=== PATIENT | male | born 1940 | race Caucasian/White ===

== ENCOUNTER 2020-07-15 14:35 | Emergency (ER) | payer OTHER, MEDICARE ==
[2020-07-15] MEDS ORDERED: Morphine 2 MG/ML SYRINGE IM ONE (14:53)
[2020-07-15] MEDS ORDERED: Morphine 2 MG/ML SYRINGE IVPUSH ONE ×2 (15:19→17:18)
[2020-07-15 15:20] LABS: CHLORIDE,CL 101 mmol/L (98-107); SODIUM,NA 136 mmol/L (136-145)
[2020-07-15 15:29] LABS: CORONAVIRUS COVID-19 AG NEGATIVE (NEGATIVE)
[2020-07-15] MEDS: Sodium Chloride 0.9% 10 ML Syringe FLUSH PRN ×2 (15:37→17:24)
[2020-07-15] MEDS ORDERED: Sodium Chloride 0.9% 10 ML Syringe FLUSH PRN (15:40)
--- NOTE | 2020-07-15 18:16 | EDM.PDOC ---
ED HPI GENERAL MEDICAL PROBLEM - General Chief Complaint: Lower Extremity Injury/Pain Stated Complaint: Right Hip Pain Time Seen by Provider: 07/15/20 14:40 Source of Information: Reports: Patient, Skilled Nursing Records - History of Present Illness INITIAL COMMENTS - FREE TEXT/NARRATIVE: Pt fell 07/02/20 at [place] home Complained of pain today Pt sent for outpt xray and noted to have right hip fracture Sent to ER Pt complains of pain in right hip 09/22 Onset: Gradual Duration: Week(s):, Getting Worse Location: Reports: Lower Extremity, Right Quality: Reports: Throbbing Severity: Moderate Context: Reports: Trauma Right Hip Pain Score (Numeric/FACES): 5 - Related Data Allergies Allergy/AdvReac Type Severity Reaction Status Date / Time No Known Allergies Allergy Verified 05/29/16 12:03 Home Meds: Home Meds Budesonide/Formoterol [Symbicort 160-4.5 Mcg Inhaler] 1 inh IH BID@0600,1600 02/24/15 [History] OLANZapine [ZyPREXA] 20 mg PO DAILY@1600 02/24/15 [History] Topiramate [Topamax] 75 mg PO BID@0800,1600 02/24/15 [History] Albuterol/Ipratropium [DuoNeb 3.0-0.5 MG/3 ML] 3 ml INH BID@0600,1600 05/29/16 [History] Acetaminophen [Tylenol Arthritis] 1 tab PO DAILY@0600 07/15/20 [History] Acetaminophen [Tylenol] 2 tab PO Q4HR PRN MDD 3000mg 07/15/20 [History] Albuterol Sulfate [Albuterol Sulfate HFA] 2 inh PO ASDIRECTED PRN MDD 5 times 07/15/20 [History] Ibuprofen 200 mg PO BID PRN 07/15/20 [History] Methyl Salicylate/Menthol [Thera-Gesic Analgesic] 1 applic TOP DAILY 07/15/20 [History] Phenylephrine HCl [Sudogest PE] 10 mg PO Q4HR PRN MDD 6 07/15/20 [History] cephALEXin [Cephalexin] 500 mg PO TID 07/15/20 [History] Past Medical History HEENT History: Reports: Allergic Rhinitis Cardiovascular History: Reports: Afib, High Cholesterol, Hypertension, PVD Respiratory History: Reports: COPD Gastrointestinal History: Reports: Colon Polyp Neurological History: Reports: TIA Psychiatric History: Reports: Depression, Schizophrenia Endocrine/Metabolic History: Reports: Diabetes, Type II - Past Surgical History Other GI Surgeries/Procedures: Previous feeding tube. Social & Family History - Tobacco Use Tobacco Use Status *Q: Current Every Day Tobacco User Years of Tobacco use: 64 Packs/Tins Daily: 1 Second Hand Smoke Exposure: No - Caffeine Use Caffeine Use: Reports: Soda - Recreational Drug Use Recreational Drug Use: No - Living Situation & Occupation Living situation: Reports: Extended Care Facility Occupation: Retired Review of Systems - Review of Systems Review Of Systems: See Below Constitutional: Reports: No Symptoms Eyes: Reports: No Symptoms Ears: Reports: No Symptoms Nose: Reports: No Symptoms Mouth/Throat: Reports: No Symptoms Respiratory: Reports: No Symptoms Cardiovascular: Reports: No Symptoms GI/Abdominal: Reports: No Symptoms Musculoskeletal: Reports: Joint Pain Skin: Reports: No Symptoms Neurological: Reports: No Symptoms ED EXAM, GENERAL - Physical Exam Exam: See Below General Appearance: Alert, Mild Distress Throat/Mouth: Normal Oropharynx Neck: Supple Respiratory/Chest: Lungs Clear Cardiovascular: Regular Rate, Rhythm GI/Abdominal: Soft, Non-Tender Back Exam: Normal Inspection Extremities: Limited Range of Motion, Other (Right hip tender) Course - Vital Signs Last Recorded V/S: Last Vital Signs Temp 97.5 F 07/15/20 14:37 Pulse 58 L 07/15/20 14:37 Resp 18 07/15/20 14:37 BP 157/59 H 07/15/20 14:37 Pulse Ox 96 07/15/20 14:37 - Orders/Labs/Meds Orders: Active Orders 24 hr Category Date Time Status Sodium Chloride 0.9% [Saline Flush] Med 07/15/20 15:39 Active 10 ml FLUSH ASDIRECTED PRN Sodium Chloride 0.9% [Saline Flush] Med 07/15/20 15:40 Active 10 ml FLUSH ASDIRECTED PRN Saline Lock Insert [OM.PC] Routine Oth 07/15/20 15:40 Ordered Medication Orders Sodium Chloride (Saline Flush) 10 ml FLUSH ASDIRECTED PRN PRN Reason: IV Use Last Admin: 07/15/20 17:24 Dose: 10 ml Documented by: Admin: 07/15/20 15:37 Dose: 10 ml Documented by: LYNDA Sodium Chloride (Saline Flush) 10 ml FLUSH ASDIRECTED PRN PRN Reason: Keep Vein Open Labs: Laboratory Tests 07/15/20 07/15/20 Range/Units 15:00 15:00 WBC 11.1 H (4.0-10.2) K/uL RBC 3.93 L (4.33-5.41) M/uL Hgb 12.4 L D (13.1-16.8) g/dL Hct 39.0 (39.0-49.0) % MCV 99.2 H (84.0-98.0) fL MCH 31.6 (28.2-33.3) pg MCHC 31.8 (31.7-36.0) g/dL RDW 12.9 (11.2-14.1) % Plt Count 316 (150-350) K/uL Neut % (Auto) 71.4 (45.0-80.0) % Lymph % (Auto) 19.6 (10.0-50.0) % Borden % (Auto) 8.3 (2.0-14.0) % Eos % (Auto) 0.6 (0.0-5.0) % Baso % (Auto) 0.1 (0.0-2.0) % Neut # (Auto) 7.95 H (1.40-7.00) K/uL Lymph # (Auto) 2.18 (0.50-3.50) K/uL Borden # (Auto) 0.93 (0.00-1.00) K/uL Eos # (Auto) 0.07 (0.00-0.50) K/uL Baso # (Auto) 0.01 (0.00-0.20) K/uL Sodium 136 (136-145) mmol/L Potassium 3.9 (3.5-5.1) mmol/L Chloride 101 (98-107) mmol/L Carbon Dioxide 24.5 (21.0-32.0) mmol/L BUN 14 (7-18) mg/dL Creatinine 0.92 (0.51-1.17) mg/dL Est Cr Clr Drug Dosing TNP Estimated GFR (MDRD) > 60 mL/min Glucose 92 (70-99) mg/dL Calcium 9.0 (8.5-10.1) mg/dL Total Bilirubin 0.4 (0.2-1.0) mg/dL AST 13 L (15-37) U/L ALT 17 (12-78) U/L Alkaline Phosphatase 112 (46-116) IU/L Total Protein 7.4 (6.4-8.2) g/dL Albumin 2.9 L (3.4-5.0) g/dL SARS-CoV-2 Ag (Rapid) Negative (NEGATIVE) Meds: Medications Generic Name Dose Route Start Last Admin Trade Name Freq PRN Reason Stop Dose Admin Sodium Chloride 10 ml 07/15/20 15:39 07/15/20 17:24 Saline Flush FLUSH 10 ml ASDIRECTED PRN Administration IV Use Sodium Chloride 10 ml 07/15/20 15:40 Saline Flush FLUSH ASDIRECTED PRN Keep Vein Open Discontinued Medications Generic Name Dose Route Start Last Admin Trade Name Freq PRN Reason Stop Dose Admin Morphine Sulfate 2 mg 07/15/20 14:53 07/15/20 15:38 Morphine IM 07/15/20 14:54 Not Given ONETIME ONE Morphine Sulfate 2 mg 07/15/20 15:19 07/15/20 15:37 Morphine IVPUSH 07/15/20 15:20 2 mg ONETIME ONE Administration Morphine Sulfate 2 mg 07/15/20 17:18 07/15/20 17:25 Morphine IVPUSH 07/15/20 17:19 2 mg ONETIME ONE Administration - Re-Assessments/Exams Free Text/Narrative Re-Assessment/Exam: 07/15/20 18:15 Xray: Impacted right femora D/W [facility] No ortho available D/W [facility] On-call hospitalist Dr Wright Will accept in transfer neck fracture Departure - Departure Time of Disposition: 18:15 Disposition: DC/Tfer to Acute Hospital 02 Clinical Impression: Fracture of neck of femur, hip - Discharge Information Referrals: Johanne Clark PA [Primary Care Provider] - Sepsis Event Note (ED) - Evaluation Sepsis Screening Result: No Definite Risk - Focused Exam Vital Signs: Vital Signs Temp Pulse Resp BP Pulse Ox 07/15/20 14:37 97.5 F 58 L 18 157/59 H 96 - My Orders Last 24 Hours: My Active Orders 07/15/20 15:39 Sodium Chloride 0.9% [Saline Flush] 10 ml FLUSH ASDIRECTED PRN 07/15/20 15:40 Sodium Chloride 0.9% [Saline Flush] 10 ml FLUSH ASDIRECTED PRN Saline Lock Insert [OM.PC] Routine - Assessment/Plan Last 24 Hours: My Active Orders 07/15/20 15:39 Sodium Chloride 0.9% [Saline Flush] 10 ml FLUSH ASDIRECTED PRN 07/15/20 15:40 Sodium Chloride 0.9% [Saline Flush] 10 ml FLUSH ASDIRECTED PRN Saline Lock Insert [OM.PC] Routine
[2020-07-15 19:31] VITALS: BP 164/99; PULSE 75
== END 2020-07-15 18:48 ==
LOC: LL.ED 14:35
DX: S72.001A Fracture of unspecified part of neck of right femur, initial encounter for closed fracture (principal); I48.91 Unspecified atrial fibrillation; I10 Essential (primary) hypertension; E11.51 Type 2 diabetes mellitus with diabetic peripheral angiopathy without gangrene; J44.9 Chronic obstructive pulmonary disease, unspecified; Z86.73 Personal history of transient ischemic attack (TIA), and cerebral infarction without residual deficits; Z79.899 Other long term (current) drug therapy; Z72.0 Tobacco use; Z20.822 Contact with and (suspected) exposure to COVID-19; M25.551 Pain in right hip; S72.001D Fracture of unspecified part of neck of right femur, subsequent encounter for closed fracture with routine healing; X58.XXXD Exposure to other specified factors, subsequent encounter; W19.XXXA Unspecified fall, initial encounter
CPT/HCPCS: 36415; 80053; 85025; 87426; 96374; 96376; 99284; 99285-25; J2270

== ENCOUNTER 2020-07-25 15:35 | Emergency (ER) | payer MEDICARE, OTHER ==
[2020-07-25] MEDS ORDERED: Azithromycin 500 MG in Sodium Chloride 0.9% 250 ML IV ONE (16:26)
--- NOTE | 2020-07-25 16:26 | EDM.PDOC ---
ED HPI GENERAL MEDICAL PROBLEM - General Chief Complaint: Respiratory Problem Stated Complaint: Elevated WBC, Cough Time Seen by Provider: 07/25/20 16:06 Source of Information: Reports: Other ([facility] staff) History Limitations: Reports: Other (very poor verbal communication) - History of Present Illness INITIAL COMMENTS - FREE TEXT/NARRATIVE: Patient is resident of [facility]. Noted to have congested cough, decreased level of interaction, quieter, appears weaker. BPs lower than usual. Patient himself is not verbal with ER staff. Sitting in wheelchair. Makes eye contact with staff. Shakes head "yes" when asked if he does not feel good. But shakes head "no" to all questions in ROS. Recent hip surgery due to fracture. WBC 20.2 today. Is on Lovenox. No other reported changes. Patient does have a history of dysphagia. Has been refusing his thickened liquids per staff. - Related Data Allergies Allergy/AdvReac Type Severity Reaction Status Date / Time No Known Allergies Allergy Verified 05/29/16 12:03 Home Meds: Home Meds Budesonide/Formoterol [Symbicort 160-4.5 Mcg Inhaler] 1 inh IH BID@0600,1600 02/24/15 [History] OLANZapine [ZyPREXA] 20 mg PO DAILY@1600 02/24/15 [History] Topiramate [Topamax] 75 mg PO BID@0800,1600 02/24/15 [History] Albuterol/Ipratropium [DuoNeb 3.0-0.5 MG/3 ML] 3 ml INH BID@0600,1600 05/29/16 [History] Acetaminophen [Tylenol Arthritis] 1 tab PO DAILY@0600 07/15/20 [History] Acetaminophen [Tylenol] 2 tab PO Q4HR PRN MDD 3000mg 07/15/20 [History] Albuterol Sulfate [Albuterol Sulfate HFA] 2 inh PO ASDIRECTED PRN MDD 5 times 07/15/20 [History] Ibuprofen 200 mg PO BID PRN 07/15/20 [History] Methyl Salicylate/Menthol [Thera-Gesic Analgesic] 1 applic TOP DAILY 07/15/20 [History] Phenylephrine HCl [Sudogest PE] 10 mg PO Q4HR PRN MDD 6 07/15/20 [History] cephALEXin [Cephalexin] 500 mg PO TID 07/15/20 [History] Past Medical History HEENT History: Reports: Allergic Rhinitis, Cataract Cardiovascular History: Reports: Afib, Heart Murmur, High Cholesterol, Hypertension, PVD Respiratory History: Reports: COPD Gastrointestinal History: Reports: Chronic Constipation, Colon Polyp Musculoskeletal History: Reports: Other (See Below) (right femoral neck fracture July 15, 2020) Neurological History: Reports: Seizure, TIA, Other (See Below) Other Neuro History: hx epilepsy Psychiatric History: Reports: Addiction, Depression, Schizophrenia Endocrine/Metabolic History: Reports: Diabetes, Type II - Infectious Disease History Infectious Disease History: Reports: Other (See Below) 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 Social & Family History - Caffeine Use Caffeine Use: Reports: Soda - Living Situation & Occupation Living situation: Reports: Extended Care Facility Occupation: Retired ED ROS GENERAL - Review of Systems Review Of Systems: Unable To Obtain (As per HPI, accuracy of ROS questionable given that only time patient nods head "yes" is when he is asked if he does not feel good. Otherwise shakes "no" for ROS list.) Reason Not Obtained: Patient nonverbal/only nodded "yes" to question if he felt ill. ED EXAM, GENERAL - Physical Exam Exam: See Below Exam Limited By: No Limitations General Appearance: Alert, No Apparent Distress, Other (sitting in wheel chair) Eye Exam: Bilateral Eye: EOMI, PERRL Ears: Normal External Exam, Normal Canal Nose: No: Nasal Deformity, Nasal Swelling, Nasal Drainage Throat/Mouth: No Airway Compromise. No: Perioral Cyanosis Head: No: Atraumatic, Normocephalic Neck: Supple, Non-Tender Respiratory/Chest: No Respiratory Distress, Decreased Breath Sounds (right lung), Rhonchi (minimal/left upper lobe). No: Crackles, Rales, Wheezing, Stridor, Pleural Rub, Accessory Muscle Use, Retractions Cardiovascular: No Edema, Irregularly Irregular Peripheral Pulses: 2+: Radial (L), Radial (R) GI/Abdominal: Soft, Non-Tender, No Distention (Male) Exam: Deferred Rectal (Males) Exam: Deferred Back Exam: No: CVA Tenderness (L), CVA Tenderness (R), Muscle Spasm Extremities: Non-Tender, No Pedal Edema, Normal Capillary Refill Neurological: Alert, Other (no obvious focal deficits observed) Psychiatric: Normal Affect Skin Exam: Warm, Dry, Intact. No: Ecchymosis, Erythema, Pallor Course - Vital Signs Last Recorded V/S: Last Vital Signs Temp 36.1 C 07/25/20 17:12 Pulse 82 07/25/20 17:44 Resp 26 H 07/25/20 17:44 BP 121/62 07/25/20 17:44 Pulse Ox 96 07/25/20 17:44 - Orders/Labs/Meds Orders: Active Orders 24 hr Category Date Time Status Chest 2V [CR] Stat Exams 07/25/20 15:36 Taken CULTURE BLOOD [BC] Stat Lab 07/25/20 15:45 Received CULTURE BLOOD [BC] Stat Lab 07/25/20 16:06 Received Blood Culture x2 Reflex Set [OM.PC] Stat Oth 07/25/20 15:36 Ordered Labs: Laboratory Tests 07/25/20 07/25/20 Range/Units 13:20 16:06 Lactic Acid 1.2 (0.4-2.0) mmol/L Magnesium 1.8 (1.8-2.4) mg/dL Meds: Medications Discontinued Medications Generic Name Dose Route Start Last Admin Trade Name Freq PRN Reason Stop Dose Admin Azithromycin 500 mg/ Sodium 250 mls @ 250 mls/hr 07/25/20 16:26 07/25/20 17:23 Chloride IV 07/25/20 17:25 250 mls/hr ONETIME ONE Administration Ceftriaxone Sodium 1 gm/ 100 mls @ 200 mls/hr 07/25/20 16:28 07/25/20 16:37 Sodium Chloride IV 07/25/20 16:57 200 mls/hr ONETIME ONE Administration Sodium Chloride 10 ml 07/25/20 17:30 Sodium Chloride 0.9% 10 Ml Syringe FLUSH ASDIRECTED JOSEPH - Re-Assessments/Exams Free Text/Narrative Re-Assessment/Exam: 07/25/20 17:03 CBC/Chem performed at [facility] earlier today. WBC 20.2 Hgb 11.4 Plt 392 left shift noted. CRP 6.1 Chemistry showed lower levels of Albumin and Protein. Vital signs stable. O2 sats on room air 91% Respiratory rate 20-24. Afebrile. Blood cultures pending. No UA specimen as of yet. Normal lactic acid. Radiology report noted probably developing pneumonia right middle lung/left lung clear. Initial doses of Zithromax and Rocephin ordered. Last Covid testing was Tuesday per nursing staff and was negative. [facility] arranged with Dr. Toni johnson accepting MD. Departure - Departure Time of Disposition: 17:10 Disposition: DC/[facility] to [facility] Condition: Good Clinical Impression: Recent fracture of hip Pneumonia Qualifiers: Pneumonia type: due to unspecified organism Laterality: right Lung location: middle lobe of lung Qualified Code(s): J18.9 - Pneumonia, unspecified organism - Discharge Information *PRESCRIPTION DRUG MONITORING PROGRAM REVIEWED*: Not Applicable *COPY OF PRESCRIPTION DRUG MONITORING REPORT IN PATIENT BRIANNA: Not Applicable Referrals: Johanne Clark PA [Primary Care Provider] - Forms: ED Department Discharge Sepsis Event Note (ED) - Focused Exam Vital Signs: Vital Signs Temp Pulse Resp BP Pulse Ox 07/25/20 17:44 82 26 H 121/62 96 07/25/20 17:12 36.1 C 79 24 H 111/65 97 07/25/20 15:35 36.1 C 113 H 20 109/62 93 L - My Orders Last 24 Hours: My Active Orders 07/25/20 15:36 Chest 2V [CR] Stat Blood Culture x2 Reflex Set [OM.PC] Stat 07/25/20 15:45 CULTURE BLOOD [BC] Stat 07/25/20 16:06 CULTURE BLOOD [BC] Stat - Assessment/Plan Last 24 Hours: My Active Orders 07/25/20 15:36 Chest 2V [CR] Stat Blood Culture x2 Reflex Set [OM.PC] Stat 07/25/20 15:45 CULTURE BLOOD [BC] Stat 07/25/20 16:06 CULTURE BLOOD [BC] Stat
[2020-07-25] MEDS ORDERED: cefTRIAXone 1 GM in Sodium Chloride 0.9% 100 ML IV ONE (16:28)
[2020-07-25] MEDS ORDERED: Sodium Chloride 0.9% 10 ML Syringe FLUSH SCH (17:30)
[2020-07-25 17:44] VITALS: BP 121/62; PULSE 82
== END 2020-07-25 17:55 ==
LOC: LL.ED 15:35
DX: J18.9 Pneumonia, unspecified organism (principal); G40.909 Epilepsy, unspecified, not intractable, without status epilepticus; I48.91 Unspecified atrial fibrillation; I10 Essential (primary) hypertension; E11.51 Type 2 diabetes mellitus with diabetic peripheral angiopathy without gangrene; J44.9 Chronic obstructive pulmonary disease, unspecified; Z87.81 Personal history of (healed) traumatic fracture; Z86.73 Personal history of transient ischemic attack (TIA), and cerebral infarction without residual deficits
CPT/HCPCS: 36415; 71046; 83605; 83735; 87040; 96365; 96367; 99284; 99285-25; J0456; J0696; J7050

== ENCOUNTER 2020-08-06 20:34 | Emergency (ER) | payer MEDICARE, OTHER ==
[2020-08-06 21:44] LABS: CHLORIDE,CL 104 mmol/L (98-107); SODIUM,NA 137 mmol/L (136-145)
--- NOTE | 2020-08-06 21:47 | EDM.PDOC ---
ED HPI GENERAL MEDICAL PROBLEM - General Chief Complaint: General Stated Complaint: hypotension Time Seen by Provider: 08/06/20 20:54 Source of Information: Reports: Patient, Other ([facility]) History Limitations: Reports: Other (Patient is mostly nonverbal. Nods yes/no to some questions. ) - History of Present Illness INITIAL COMMENTS - FREE TEXT/NARRATIVE: Patient sent here to be evaluated as his BP was running low. 86/34 was reading given to us during report. Staff were worried he may have aspirated part of a candy bar yesterday. Is on PRN O2 via NC around 2L. Notes say that he was complaining of SOB earlier today and room air sats 76%. He was given PRN Albuterol and NC O2 at 2L and things improved. O2 sats 88% No fevers noted. No other changes reported to us by their staff. Patient has been having problems since hip fracture diagnosis 07/15/20. Was seen again in the ER not long after and appeared to have right sided pneumonia. Transferred to [facility] in [place] for treatment of the pneumonia. Is now back at the local [facility]. History is limited due to patient mainly communicating by nodding head yes and shaking it for no. ROS performed and his only complaint was feeling tired. Denied new pain/SOB/other acute problems. Reading through some of the notes on patient's chart from [facility] it appears that he has not been wanting to participate in PT, frequently refuses food. Is not able to return to [facility] side at this point. He has also had a weight loss of approximately 10 pounds since his hip fracture which represents around a 9% weight loss. - Related Data Allergies Allergy/AdvReac Type Severity Reaction Status Date / Time No Known Allergies Allergy Verified 08/06/20 21:04 Home Meds: Home Meds Budesonide/Formoterol [Symbicort 160-4.5 Mcg Inhaler] 1 inh IH BID@0600,1600 02/24/15 [History] OLANZapine [ZyPREXA] 20 mg PO DAILY@159902/24/15 [History] Topiramate [Topamax] 75 mg PO BID@0800,1600 02/24/15 [History] Albuterol/Ipratropium [DuoNeb 3.0-0.5 MG/3 ML] 3 ml INH BID@0600,1600 05/29/16 [History] Acetaminophen [Tylenol Arthritis] 1 tab PO DAILY@0600 07/15/20 [History] Acetaminophen [Tylenol] 2 tab PO Q4HR PRN MDD 3000mg 07/15/20 [History] Albuterol Sulfate [Albuterol Sulfate HFA] 2 inh PO ASDIRECTED PRN MDD 5 times 07/15/20 [History] Ibuprofen 200 mg PO BID PRN 07/15/20 [History] Methyl Salicylate/Menthol [Thera-Gesic Analgesic] 1 applic TOP DAILY 07/15/20 [History] Phenylephrine HCl [Sudogest PE] 10 mg PO Q4HR PRN MDD 6 07/15/20 [History] cephALEXin [Cephalexin] 500 mg PO TID 07/15/20 [History] Azithromycin [Zithromax] 250 mg PO DAILY #4 tablet 08/06/20 [Rx] Past Medical History HEENT History: Reports: Allergic Rhinitis, Cataract Cardiovascular History: Reports: Afib, Heart Murmur, High Cholesterol, Hypertension, PVD Respiratory History: Reports: COPD Gastrointestinal History: Reports: Chronic Constipation, Colon Polyp Musculoskeletal History: Reports: Other (See Below) (right femoral neck fracture July 15, 2020) Neurological History: Reports: Seizure, TIA, Other (See Below) Other Neuro History: hx epilepsy Psychiatric History: Reports: Addiction, Depression, Schizophrenia Endocrine/Metabolic History: Reports: Diabetes, Type II - Infectious Disease History Infectious Disease History: Reports: Other (See Below) 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 Social & Family History - Caffeine Use Caffeine Use: Reports: Soda - Living Situation & Occupation Living situation: Reports: Extended Care Facility Occupation: Retired ED ROS GENERAL - Review of Systems Review Of Systems: Comprehensive ROS is negative, except as noted in HPI. ED EXAM, GENERAL - Physical Exam Exam: See Below Exam Limited By: No Limitations General Appearance: Thin, Other (Patient wakes easily to voice but prefers to keep eyes closed if left alone) Eye Exam: Bilateral Eye: EOMI, PERRL Ears: Hearing Grossly Normal Nose: No: Nasal Deformity, Nasal Swelling, Nasal Drainage Throat/Mouth: Normal Lips, No Airway Compromise Head: Atraumatic, Normocephalic Neck: Supple Respiratory/Chest: No Accessory Muscle Use, Rhonchi (several rhonchi noted right mid lung). No: Crackles, Wheezing, Stridor, Accessory Muscle Use, Retractions Cardiovascular: Regular Rate, Rhythm, No Murmur GI/Abdominal: Soft, Non-Tender, No Distention (Male) Exam: Deferred Rectal (Males) Exam: Deferred Back Exam: No: Muscle Spasm Extremities: Non-Tender, No Pedal Edema, Normal Capillary Refill Neurological: Alert, Other (equal tone/strength bilat.) Psychiatric: Normal Affect, Normal Mood Skin Exam: Warm, Dry, Pallor Course - Orders/Labs/Meds Orders: Active Orders 24 hr Category Date Time Status Chest 2V [CR] Stat Exams 08/06/20 20:39 Taken Labs: Laboratory Tests 08/06/20 08/06/20 08/06/20 Range/Units 20:10 20:10 20:10 WBC 15.3 H (4.0-10.2) K/uL RBC 3.21 L (4.33-5.41) M/uL Hgb 10.1 L (13.1-16.8) g/dL Hct 32.0 L (39.0-49.0) % MCV 99.7 H (84.0-98.0) fL MCH 31.5 (28.2-33.3) pg MCHC 31.6 L (31.7-36.0) g/dL RDW 13.4 (11.2-14.1) % Plt Count 339 (150-350) K/uL Neut % (Auto) 84.9 H (45.0-80.0) % Lymph % (Auto) 9.0 L (10.0-50.0) % [place] % (Auto) 5.7 (2.0-14.0) % Eos % (Auto) 0.3 (0.0-5.0) % Baso % (Auto) 0.1 (0.0-2.0) % Neut # (Auto) 13.00 H (1.40-7.00) K/uL Lymph # (Auto) 1.38 (0.50-3.50) K/uL [place] # (Auto) 0.87 (0.00-1.00) K/uL Eos # (Auto) 0.04 (0.00-0.50) K/uL Baso # (Auto) 0.02 (0.00-0.20) K/uL D-Dimer, Quantitative (0-400) ng/mL Sodium 137 (136-145) mmol/L Potassium 3.3 L (3.5-5.1) mmol/L Chloride 104 (98-107) mmol/L Carbon Dioxide 25.2 (21.0-32.0) mmol/L BUN 14 (7-18) mg/dL Creatinine 0.86 (0.51-1.17) mg/dL Est Cr Clr Drug Dosing TNP Estimated GFR (MDRD) > 60 mL/min Glucose 164 H (70-99) mg/dL Lactic Acid 0.6 (0.4-2.0) mmol/L Calcium 8.4 L (8.5-10.1) mg/dL Total Bilirubin 0.4 (0.2-1.0) mg/dL AST 14 L (15-37) U/L ALT 26 (12-78) U/L Alkaline Phosphatase 91 (46-116) IU/L Total Protein 6.4 (6.4-8.2) g/dL Albumin 2.3 L (3.4-5.0) g/dL Specimen Type Urine Color Urine Appearance Urine pH (5.0-9.0) Ur Specific [place] (1.005-1.030) Urine Protein (NEGATIVE) mg/dL Urine Glucose (UA) (NEGATIVE) mg/dL Urine Ketones (NEGATIVE) mg/dL Urine Occult Blood (NEGATIVE) Urine Nitrite (NEGATIVE) Urine Bilirubin (NEGATIVE) Urine Urobilinogen (0.2-1.0) E.U./dL Ur Leukocyte Esterase (NEGATIVE) Urine RBC /HPF Urine WBC /HPF Ur Epithelial Cells /LPF Urine Bacteria (NONE TO FEW) /HPF 08/06/20 08/06/20 Range/Units 21:10 21:36 WBC (4.0-10.2) K/uL RBC (4.33-5.41) M/uL Hgb (13.1-16.8) g/dL Hct (39.0-49.0) % MCV (84.0-98.0) fL MCH (28.2-33.3) pg MCHC (31.7-36.0) g/dL RDW (11.2-14.1) % Plt Count (150-350) K/uL Neut % (Auto) (45.0-80.0) % Lymph % (Auto) (10.0-50.0) % [place] % (Auto) (2.0-14.0) % Eos % (Auto) (0.0-5.0) % Baso % (Auto) (0.0-2.0) % Neut # (Auto) (1.40-7.00) K/uL Lymph # (Auto) (0.50-3.50) K/uL [place] # (Auto) (0.00-1.00) K/uL Eos # (Auto) (0.00-0.50) K/uL Baso # (Auto) (0.00-0.20) K/uL D-Dimer, Quantitative 1680 H (0-400) ng/mL Sodium (136-145) mmol/L Potassium (3.5-5.1) mmol/L Chloride (98-107) mmol/L Carbon Dioxide (21.0-32.0) mmol/L BUN (7-18) mg/dL Creatinine (0.51-1.17) mg/dL Est Cr Clr Drug Dosing Estimated GFR (MDRD) mL/min Glucose (70-99) mg/dL Lactic Acid (0.4-2.0) mmol/L Calcium (8.5-10.1) mg/dL Total Bilirubin (0.2-1.0) mg/dL AST (15-37) U/L ALT (12-78) U/L Alkaline Phosphatase (46-116) IU/L Total Protein (6.4-8.2) g/dL Albumin (3.4-5.0) g/dL Specimen Type Urinvoid Urine Color Yellow Urine Appearance Clear Urine pH 5.0 (5.0-9.0) Ur Specific [place] 1.025 (1.005-1.030) Urine Protein Negative (NEGATIVE) mg/dL Urine Glucose (UA) Negative (NEGATIVE) mg/dL Urine Ketones Trace H (NEGATIVE) mg/dL Urine Occult Blood Negative (NEGATIVE) Urine Nitrite Negative (NEGATIVE) Urine Bilirubin Small H (NEGATIVE) Urine Urobilinogen 0.2 (0.2-1.0) E.U./dL Ur Leukocyte Esterase Negative (NEGATIVE) Urine RBC 0-5 /HPF Urine WBC 0-5 /HPF Ur Epithelial Cells Rare /LPF Urine Bacteria Rare (NONE TO FEW) /HPF - Radiology Interpretation Free Text/Narrative:: Chest xray shows no acute changes from baseline/pending formal radiology review. Previous mild right sided pneumonia appears to have cleared. - Re-Assessments/Exams Free Text/Narrative Re-Assessment/Exam: 08/06/20 22:00 WBC elevated at 15. Chest xray suggests previous pneumonia has cleared. 08/06/20 22:13 UA unremarkable. DDimer elevated. With patient's recent hip fracture and earlier SOB complaint/lower O2 sats cannot rule out possible PE. Again, no obvious pneumonia noted on plain film. Patient declines/refuses CT angio to look for PE even when told that if a clot is present, it could be fatal. He also made it clear that he does not want to be in a hospital, either in [place] or here. Patient wants to go back to [facility]. He is willing to take an antibiotic to see if it helps. Can start coverage with Zithromax. He does appear to be in a general decline given decreased PO intake/weight loss/disinterest in participating with therapy. Has history of depression which should be revisited by PCP. Also recommend Hospice consult if further decline is noted and patient continues to decline treatments. Departure - Departure Time of Disposition: 22:40 Disposition: DC/Tfer to SNF 03 Condition: Fair Clinical Impression: SOB (shortness of breath) Failure to thrive Qualifiers: Failure to thrive age range: in adult Qualified Code(s): R62.7 - Adult failure to thrive Hypotension Qualifiers: Hypotension type: unspecified hypotension type Qualified Code(s): I95.9 - Hypotension, unspecified - Discharge Information *PRESCRIPTION DRUG MONITORING PROGRAM REVIEWED*: Not Applicable *COPY OF PRESCRIPTION DRUG MONITORING REPORT IN PATIENT BRIANNA: Not Applicable Prescriptions: Azithromycin [Zithromax] 250 mg PO DAILY #4 tablet Referrals: Johanne Clark PA [Primary Care Provider] - Forms: ED Department Discharge Additional Instructions: Have patient follow up with primary care provider. Recheck for tonight's complaint and reassess patient's overall mental health and goals. Consider Hospice consult if appropriate. He strongly indicated tonight that he is willing to take a pill to see if he feels better, but otherwise he is not interested in more aggressive care. This includes refusal of IV medications, PE study, inpatient hospitalization of any kind. He appears to have declined in general since hip fracture. He has had about a 9% decrease in weight based on pre- fracture weight and current weight. This may be contributing to the h ypotension. There is still an elevated white count, but no obvious focal infection/UTI/pneumonia. Will institute 5 day coverage with Zithromax. First dose given in ER. Hold Cardizem for BP less than 120/80. - My Orders Last 24 Hours: My Active Orders 08/06/20 20:39 Chest 2V [CR] Stat - Assessment/Plan Last 24 Hours: My Active Orders 08/06/20 20:39 Chest 2V [CR] Stat
[2020-08-06] MEDS ORDERED: Azithromycin 250 MG Tab PO ONE (22:22)
[2020-08-06 22:56] VITALS: PULSE 66
[2020-08-06 23:48] VITALS: BP 87/54
== END 2020-08-06 22:55 ==
LOC: LL.ED 20:34
DX: I95.9 Hypotension, unspecified (principal); R06.02 Shortness of breath; R62.7 Adult failure to thrive; D72.829 Elevated white blood cell count, unspecified; R79.1 Abnormal coagulation profile; I48.91 Unspecified atrial fibrillation; I10 Essential (primary) hypertension; J44.9 Chronic obstructive pulmonary disease, unspecified; E11.9 Type 2 diabetes mellitus without complications; Z79.899 Other long term (current) drug therapy
CPT/HCPCS: 36415; 71046; 80053; 81001; 83605; 85025; 85379; 99284; 99285-25; A9270-GY

== ENCOUNTER 2020-08-26 14:14 | Emergency (ER) | payer MEDICARE, OTHER ==
[2020-08-26] MEDS ORDERED: Sodium Chloride 0.9% 10 ML Syringe FLUSH PRN (14:23)
--- NOTE | 2020-08-26 14:23 | EDM.PDOC ---
ED HPI GENERAL MEDICAL PROBLEM - General Chief Complaint: Respiratory Problem Stated Complaint: copd exacerbation Time Seen by Provider: 08/26/20 14:22 Source of Information: Reports: Snf Records, Old Records ([facility] chart/EMR) History Limitations: Reports: Altered Mental Status - History of Present Illness INITIAL COMMENTS - FREE TEXT/NARRATIVE: The patient was referred to the emergency room by his regular provider, Johanne Clark PA-C, at [facility], with only limited records given to our nurse prior to his arrival to the facility from the care home staff. Note transport via transport vehicle from [facility] in [place]. The patient is an extremely poor historian secondary to his baseline psychiatric and mental status. Only limited records were obtained with no official report from patient's primary provider. Blood work earlier this morning showed significant leukocytosis with WBCs of 20.4 and elevated CRP of 18.8. Blood cultures or other specimens were not collected with comprehensive metabolic panel showing an elevated random glucose of 198 and elevated BNP of 3572. No known history of chest pain or anginal type symptoms. No apparent abdominal complaints, UTI complaints, etc. with no history obtained concerning possible recent cough, fever, etc. Patient's O2 sat was in the low 80th percentile on room air prior to transfer with patient transferred with 6 L/min by nasal cannula. The patient is unable to tell us whether he has any specific pain or discomfort. Onset: Unknown/Unsure Duration: Getting Worse Location: Reports: Other (Unable to rate pain or discomfort as above) Quality: Reports: Same as Previous Episode (Recurrent pneumonia) Severity: Severe (Leukocytosis as above) Improves with: Reports: None Worsens with: Reports: None Context: Reports: Other (As above). Denies: Sick Contact, Trauma Associated Symptoms: Reports: Confusion (Stable emotional status and possible organic brain syndrome), Shortness of Breath, Weakness (Moderate generalized weakness and cachexia) Treatments HOUSEFELLOW: Reports: Oxygen - Related Data Allergies Allergy/AdvReac Type Severity Reaction Status Date / Time No Known Allergies Allergy Verified 08/06/20 21:04 Home Meds: Home Meds Budesonide/Formoterol [Symbicort 160-4.5 Mcg Inhaler] 1 inh IH BID 02/24/15 [History] OLANZapine [ZyPREXA] 20 mg PO BEDTIME 02/24/15 [History] Topiramate [Topamax] 50 mg PO BID 02/24/15 [History] Albuterol/Ipratropium [DuoNeb 3.0-0.5 MG/3 ML] 3 ml INH BID 05/29/16 [History] Acetaminophen [Tylenol] 2 tab PO Q6HR PRN MDD 3000mg 07/15/20 [History] Albuterol Sulfate [Albuterol Sulfate HFA] 2 inh PO Q4HR PRN MDD 5 times 07/15/20 [History] Calcium Carbonate/Vitamin D3 [Calcium 250+D] 1 tab PO BID@12,18 08/06/20 [History] Cholecalciferol (Vitamin D3) [Vitamin D3] 1 tab PO DAILY 08/06/20 [History] Cyanocobalamin (Vitamin B12) [Vitamin B12] 1 tab PO DAILY 08/06/20 [History] Folic Acid 1 tab PO DAILY 08/06/20 [History] MO/Pet,Wh/Phenylephrine/Shk Lv [Preparation H Oint] 1 applic TOP BID PRN 0 08/06/20 [History] Tamsulosin [Flomax] 1 cap PO DAILY 08/06/20 [History] dilTIAZem HCL [Diltiazem 12Hr ER] 1 cap PO BID 08/06/20 [History] polyethylene glycoL 3350 [MiraLAX] 1 packet PO DAILY 08/06/20 [History] Apixaban [Eliquis] 2.5 mg PO BID 08/26/20 [History] Morphine [Morphine 20 MG/ML Soln] 0.05 ml PO Q4H PRN 08/26/20 [History] Past Medical History HEENT History: Reports: Allergic Rhinitis, Cataract Cardiovascular History: Reports: Afib, Cardiomyopathy, Heart Failure, Heart Murmur, High Cholesterol, Hypertension, PVD, Syncope, Other (See Below) Other Cardiovascular History: Left ventricular hypertrophy by chest x-ray. History of D-dimer elevation on 08/06/2020 with patient refusing work-up at that time. Respiratory History: Reports: Bronchitis, Recurrent, COPD, Pneumonia, Recurrent, Pulmonary Fibrosis Gastrointestinal History: Reports: Chronic Constipation, Colon Polyp, Hemorrhoids Genitourinary History: Reports: BPH, Retention, Urinary. Denies: Urinary Incontinence Musculoskeletal History: Reports: Arthritis, Back Pain, Chronic, Fracture, Neck Pain, Chronic, Osteoarthritis, Osteoporosis, Other (See Below) Other Musculoskeletal History: Right hip subcapital fracture on 07/15/2020. Right proximal humeral fracture with concomitant mild right glenoid scapular fracture on 05/29/2016 with subsequent conservative management. T12 vertebral body compression fracture. Neurological History: Reports: CVA, Seizure, TIA, Other (See Below) Other Neuro History: History of unknown type of seizure disorder with current m edical therapy. Right parietal CVA in 2005? Psychiatric History: Reports: Addiction, Anxiety, Depression, Schizophrenia, Other (See Below) Other Psychiatric History: Chronic narcotic and Ultram use. Paranoia. Endocrine/Metabolic History: Reports: Diabetes, Type II, Hypokalemia, Osteopenia, Osteoporosis, Other (See Below). Denies: Hypothyroidism Other Endocrine/Metabolic History: Hyponatremia. Hypoalbuminemia. 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 - Past Surgical History HEENT Surgical History: Reports: Oral Surgery, Other (See Below) Other HEENT Surgeries/Procedures: Multiple teeth extractions. GI Surgical History: Reports: Appendectomy, Colonoscopy, Polypectomy, Other (See Below) Other GI Surgeries/Procedures: Previous feeding tube. Musculoskeletal Surgical History: Reports: Hip Replacement, Other (See Below) Other Musculoskeletal Surgeries/Procedures:: Right hip TEP in July 2020 secondary to hip fracture. Note previous conservative care of his proximal right humeral fracture as above. - Past Imaging History Past Imaging History: Reports: Carotid US (12/14/2005), EEG (01/05/2006) Social & Family History - Family History Family Medical History: Unobtainable Neurological: Reports: MS, Other (See Below) Other Neurological Family History: Father with MS. - Tobacco Use Tobacco Use Status *Q: Current Every Day Tobacco User Tobacco Use Within Last Twelve Months: Cigarettes Years of Tobacco use: 60 Used Tobacco, but Quit: No Smoking Cessation Information Provided To Patient: No (Patient transfer) Second Hand Smoke Exposure: No Second Hand Smoke Education Provided: No - Caffeine Use Caffeine Use: Reports: Soda - Living Situation & Occupation Living situation: Reports: Extended Care Facility ([facility] in [place]) Occupation: Retired ED ROS GENERAL - Review of Systems Review Of Systems: Unable To Obtain Reason Not Obtained: Patient's emotional status ED EXAM, GENERAL - Physical Exam Exam: See Below Exam Limited By: No Limitations General Appearance: Alert, WD/WN, No Apparent Distress, Cachetic Eye Exam: Bilateral Eye: EOMI, Normal Inspection (No nystagmus), PERRL Ears: Normal External Exam, Normal Canal, Normal TMs, Hearing Loss (Mild bilateral presbycusis) Nose: Normal Inspection, Normal Mucosa, No Blood Throat/Mouth: Normal Lips, Normal Gums, Normal Oropharynx, Normal Voice, No Airway Compromise. No: Normal Teeth (Complete absent upper dentition with only a few remaining anterior lower dentition with no evidence of acute infection. No dentures present.), Dysphagia, Inflammation, Perioral Cyanosis Head: Atraumatic, Normocephalic. No: Facial Swelling, Facial Tenderness, Sinus Tenderness Neck: Supple, Non-Tender, Full Range of Motion, Carotid Bruit (Mild bilateral carotid bruits versus transmitted heart sounds). No: Lymphadenopathy (L), Lymphadenopathy (R), Thyromegaly Respiratory/Chest: No Respiratory Distress, No Accessory Muscle Use, Chest Non- Tender, Rales (Moderate diffuse bilateral rales particularly in the bases ). No: Rhonchi, Wheezing Cardiovascular: Normal Peripheral Pulses, No JVD, No Rub, Tachycardia (Occasional), Systolic Murmur (Mild 1/6 VANESA of the aortic valve), Irregularly Irregular. No: No Edema (Dependent edema as below), Gallop/S3, Gallop/S4 Peripheral Pulses: 2+: Radial (L), Radial (R), Dorsalis Pedis (L), Dorsalis Pedis (R) GI/Abdominal: Normal Bowel Sounds, Soft, Non-Tender, No Organomegaly, No Distention, No Abnormal Bruit, No Mass, Pelvis Stable. No: Guarding (Male) Exam: Deferred Rectal (Males) Exam: Deferred Back Exam: Normal Inspection, Full Range of Motion. No: CVA Tenderness (L), CVA Tenderness (R), Muscle Spasm Extremities: Normal Range of Motion, Non-Tender, Normal Capillary Refill, Pedal Edema (+1 bilateral pedal/pretibial edema), Other (Letter cachexia). No: Vickie's Sign Neurological: Alert, Confused (Stable by history organic brain syndrome?) Psychiatric: Flat Affect Skin Exam: Warm, Normal Color, No Rash. No: Diaphoretic, Ecchymosis, Wound/Incision Lymphatic: No Adenopathy #1 Interpretation EKG Date: 08/26/20 Time: 14:52 Rhythm: A-Flutter Rate (Beats/Min): 97 [place]: LAD-Left [place] Deviation P-Wave: Variable QRS: LBBB (0.12 seconds representing a complete left bundle branch block. Left ventricular hypertrophy by voltage) ST-T: Other (Nonspecific ST changes in leads aVL and V5 through V6 with questionable beginning lateral ischemia) QT: Prolonged (364/462 ms) [place]/PQ Interval: A flutter. Extreme poor R wave progression in the anterior leads Comparison: NA - No Prior EKG (No recent EKG for comparison) EKG Interpretation Comments: 1. Possible lateral wall cardiac ischemia 2. Atrial flutter 3. Prolonged QT 4. Complete left bundle branch block Course - Vital Signs Last Recorded V/S: Last Vital Signs Temp 36.6 C 08/26/20 14:14 Pulse 95 08/26/20 17:09 Resp 29 H 08/26/20 17:09 BP 135/74 08/26/20 17:09 Pulse Ox 96 08/26/20 17:09 Vital Signs - 24 hr 08/26/20 08/26/20 08/26/20 14:14 14:24 14:53 Temperature [ 36.6 C Temporal] Pulse, 95 97 103 H Peripheral [ Left Pulse Oximetry] Respiratory 26 H 28 H Rate Blood Pressure 122/64 122/67 125/73 [Right Upper Arm] O2 Sat by Pulse 92 L 93 L Oximetry 08/26/20 08/26/20 08/26/20 15:09 15:24 16:16 Temperature [ Temporal] Pulse, 110 H 101 H 100 Peripheral [ Left Pulse Oximetry] Respiratory 31 H 28 H 30 H Rate Blood Pressure 105/68 115/70 115/71 [Right Upper Arm] O2 Sat by Pulse 92 L 90 L 93 L Oximetry 08/26/20 08/26/20 08/26/20 16:24 16:39 16:54 Temperature [ Temporal] Pulse, 94 96 92 Peripheral [ Left Pulse Oximetry] Respiratory 24 H 31 H 33 H Rate Blood Pressure 118/66 128/73 148/70 H [Right Upper Arm] O2 Sat by Pulse 98 98 98 Oximetry 08/26/20 17:09 Temperature [ Temporal] Pulse, 95 Peripheral [ Left Pulse Oximetry] Respiratory 29 H Rate Blood Pressure 135/74 [Right Upper Arm] O2 Sat by Pulse 96 Oximetry - Orders/Labs/Meds Orders: Active Orders 24 hr Category Date Time Status Cardiac Monitoring [RC] CONTINUOUS Care 08/26/20 14:23 Active Communication Order [RC] ROUTINE Care 08/26/20 14:23 Active EKG Documentation Completion [RC] ASDIRECTED Care 08/26/20 14:23 Active Oxygen Therapy, ED [RC] CONTINUOUS Care 08/26/20 14:23 Active Peripheral IV Care [RC] . DIRECTED Care 08/26/20 14:23 Active Pulse Oximetry [RC] CONTINUOUS Care 08/26/20 14:23 Active Up With Assistance [RC] ASDIRECTED Care 08/26/20 14:23 Active Nothing Per Oral Diet [DIET] Diet 08/26/20 Breakfast Active Chest 1V Frontal [CR] Stat Exams 08/26/20 14:23 Taken CULTURE BLOOD [BC] Stat Lab 08/26/20 14:40 Received CULTURE BLOOD [BC] Stat Lab 08/26/20 14:45 Received Sodium Chloride 0.9% [Saline Flush] Med 08/26/20 14:23 Active 10 ml FLUSH ASDIRECTED PRN Blood Culture x2 Reflex Set [OM.PC] Stat Oth 08/26/20 14:23 Ordered Isolation [COMM] Routine Oth 08/26/20 14:23 Active Obtain Past Medical Record [OM.PC] Stat Oth 08/26/20 14:23 Active Peripheral IV Insertion Adult [OM.PC] Stat Oth 08/26/20 14:23 Ordered Resuscitation Status Routine Resus Stat 08/26/20 14:23 Ordered Medication Orders Sodium Chloride (Sodium Chloride 0.9% 10 Ml Syringe) 10 ml FLUSH ASDIRECTED PRN PRN Reason: Keep Vein Open Last Admin: 08/26/20 15:51 Dose: 10 ml Documented by: JUSTYNA Labs: Laboratory Tests 08/26/20 08/26/20 08/26/20 Range/Units 07:30 14:25 15:10 PT 11.4 (9.5-12.0) SEC INR 1.1 APTT 29.1 (24.5-32.8) SEC D-Dimer, Quantitative (0-400) ng/mL Lactic Acid (0.4-2.0) mmol/L Magnesium (1.8-2.4) mg/dL Creatine Kinase 42 (26-308) U/L Creatine Kinase Index 5.5 H (0.0-2.5) % CK-MB (CK-2) 2.30 (0.00-3.60) ng/mL Troponin I 0.016 (0.000-0.056) ng/mL NT-Pro-B Natriuret Pep (0-125) pg/mL TSH, Ultra Sensitive (0.358-3.740) mIU/mL SARS-CoV-2 RNA (JORDANA) Negative (NEGATIVE) 08/26/20 08/26/20 08/26/20 Range/Units 15:10 15:10 15:10 PT (9.5-12.0) SEC INR APTT (24.5-32.8) SEC D-Dimer, Quantitative 1640 H (0-400) ng/mL Lactic Acid 2.7 H (0.4-2.0) mmol/L Magnesium 2.1 (1.8-2.4) mg/dL Creatine Kinase 66 (26-308) U/L Creatine Kinase Index 4.1 H (0.0-2.5) % CK-MB (CK-2) 2.70 (0.00-3.60) ng/mL Troponin I 0.004 (0.000-0.056) ng/mL NT-Pro-B Natriuret Pep 3416 H (0-125) pg/mL TSH, Ultra Sensitive 1.662 (0.358-3.740) mIU/mL SARS-CoV-2 RNA (JORDANA) (NEGATIVE) Blood cultures x2 were collected in the emergency room. Note that CK and troponin I from earlier blood work at 7:30 AM was also ordered by me in the emergency room. Otherwise previous CBC and comprehensive metabolic panel at 7:30 AM showed WBCs of 20.4, hemoglobin 12.7, MCV 98.7, neutrophils of 91.3%, elevated CRP of 18.8, Random glucose of 198, albumin of 2.8, and otherwise normal BUN of 21, creatinine 0.74, sodium 137, and potassium of 3.7. BNP of 3572. COVID-19 rapid test is still pending. Meds: Medications Generic Name Dose Route Start Last Admin Trade Name Freq PRN Reason Stop Dose Admin Sodium Chloride 10 ml 08/26/20 14:23 08/26/20 15:51 Sodium Chloride 0.9% 10 Ml Syringe FLUSH 10 ml ASDIRECTED PRN Administration Keep Vein Open Discontinued Medications Generic Name Dose Route Start Last Admin Trade Name Freq PRN Reason Stop Dose Admin Ceftriaxone Sodium 2 gm/ 100 mls @ 200 mls/hr 08/26/20 15:26 08/26/20 15:51 Sodium Chloride IV 08/26/20 15:55 200 mls/hr ONETIME ONE Administration Metronidazole 500 mg/ Premix 100 mls @ 100 mls/hr 08/26/20 15:50 08/26/20 17:09 IV 08/26/20 16:49 100 mls/hr ONETIME ONE Administration Lactated Ringer's 1,000 mls @ 999 mls/hr 08/26/20 16:12 08/26/20 16:19 Ringers, Lactated IV 08/26/20 17:12 999 mls/hr .BOLUS ONE Administration - Radiology Interpretation Free Text/Narrative:: library monitor shows atrial fibrillation/flutter with average heart rate in the high 90s to low 100s however occasional mild additional tachycardia to the 110s Chest x-ray, portable, shows moderate to severe COPD and fibrotic changes with mild aortic valve calcification. Moderate bilateral lower lobe pulmonary infiltrates with probable pulmonary hypertension and/or CHF. No pneumothorax. Departure - Departure Time of Disposition: 17:30 Disposition: DC/Tfer to Acute Hospital 02 Condition: Poor Clinical Impression: Mixed anxiety depressive disorder, Complete left bundle branch block, Cachexia, Need for comfort care, Elevated lactic acid level, D-dimer, elevated COPD (chronic obstructive pulmonary disease) Qualifiers: COPD type: COPD with acute lower respiratory infection Qualified Code(s): J44.0 - Chronic obstructive pulmonary disease with (acute) lower respiratory infection HTN (hypertension) Qualifiers: Hypertension type: essential hypertension Qualified Code(s): I10 - Essential (primary) hypertension Pneumonia Qualifiers: Pneumonia type: aspiration pneumonia Aspiration pneumonia type: due to regurgitated food Laterality: bilateral Lung location: lower lobe of lung Qualified Code(s): J69.0 - Pneumonitis due to inhalation of food and vomit Schizophrenia Qualifiers: Schizophrenia type: unspecified Qualified Code(s): F20.9 - Schizophrenia, unspecified CHF (congestive heart failure) Qualifiers: Heart failure type: unspecified Heart failure chronicity: acute on chronic Qualified Code(s): I50.9 - Heart failure, unspecified Diabetes mellitus Qualifiers: Diabetes mellitus type: type 2 Diabetes mellitus complication status: without complication Qualified Code(s): E11.9 - Type 2 diabetes mellitus without complications A-fib Qualifiers: Atrial fibrillation type: longstanding persistent Qualified Code(s): I48.11 - Longstanding persistent atrial fibrillation - Discharge Information *PRESCRIPTION DRUG MONITORING PROGRAM REVIEWED*: Not Applicable *COPY OF PRESCRIPTION DRUG MONITORING REPORT IN PATIENT BRIANNA: Not Applicable Referrals: Johanne Clark PA [Primary Care Provider] - Forms: ED Department Discharge, Interfacility Transfer [place] Sepsis Event Note (ED) - Focused Exam Vital Signs: Vital Signs Temp Pulse Resp BP Pulse Ox 08/26/20 17:09 95 29 H 135/74 96 08/26/20 16:54 92 33 H 148/70 H 98 08/26/20 16:39 96 31 H 128/73 98 08/26/20 16:24 94 24 H 118/66 98 08/26/20 16:16 100 30 H 115/71 93 L 08/26/20 15:24 101 H 28 H 115/70 90 L 08/26/20 15:09 110 H 31 H 105/68 92 L 08/26/20 14:53 103 H 28 H 125/73 93 L 08/26/20 14:24 97 122/67 08/26/20 14:14 36.6 C 95 26 H 122/64 92 L - Problem List & Annotations (1) Pneumonia SNOMED Code(s): 652828335 Code(s): J18.9 - PNEUMONIA, UNSPECIFIED ORGANISM Status: Acute Priority: High Current Visit: Yes Onset Date: 08/26/20 Annotation/Comment:: Telephone consultation at 4:[address] Shepard, hospitalist at the [facility], who does accept the patient for further treatment and hospitalization, with no further treatment recommendations given. Ambulance transfer with records management technician accompaniment. Vital signs and clinical exam were stable at time of transfer. Apparent recent hospitalization at the [facility] for aspiration pneumonia with the patient continuing not to follow his thick liquids and aspiration precautions diet. Note recent completion of steroid therapy and antibiotics as above on an outpatient basis as per HPI. High-dose IV Claforan initiated in the emergency room with subsequent initiation of 1 L IV bolus of lactated Ringer's secondary to possible sepsis. IV Flagyl therapy has been ordered and will be initiated in route. Blood cultures x2 have been collected. Sputum could not be obtained. Qualifiers: Pneumonia type: aspiration pneumonia Laterality: bilateral Lung location: lower lobe of lung (2) CHF (congestive heart failure) SNOMED Code(s): 08334961 Code(s): I50.9 - HEART FAILURE, UNSPECIFIED Status: Acute Current Visit: Yes Onset Date: 08/26/20 Annotation/Comment:: Concomitant CHF with patient's bilateral aspiration pneumonia as above. Sepsis protocol was initiated as above with consideration of IV Lasix therapy depending on his clinical course. Note comfort care with no further echocardiogram, etc. indicated at this time. Qualifiers: Heart failure type: unspecified Heart failure chronicity: acute on chronic Qualified Code(s): I50.9 - Heart failure, unspecified (3) Elevated lactic acid level SNOMED Code(s): 3048561 Code(s): R79.89 - OTHER SPECIFIED ABNORMAL FINDINGS OF BLOOD CHEMISTRY Status: Acute Priority: High Current Visit: Yes Onset Date: 08/26/20 Annotation/Comment:: Patient's clinical exam and vital signs were stable during emergency room care and prior to transfer. No significant leukocytosis from blood work earlier today. Blood cultures x2 were collected. IV antibiotic therapy was initiated for his aspiration pneumonia as above. Recommend continuation of sepsis protocol by accepting providers, including repeat lactic acid level within 4 hours. (4) Need for comfort care SNOMED Code(s): 812481423, 573078793 Code(s): JMY4507 - Status: Chronic Priority: High Current Visit: Yes Annotation/Comment:: Previous comfort care and request of no further transfer hospitalization, etc. His regular provider did request hospital transfer and emergency room care today as above, however. Patient does agree to transfer to the [facility] in [place]. Long-term prognosis is extremely poor secondary to multiple health care issues as above (5) COPD (chronic obstructive pulmonary disease) SNOMED Code(s): 53537142 Code(s): J44.9 - CHRONIC OBSTRUCTIVE PULMONARY DISEASE, UNSPECIFIED Status: Chronic Priority: High Current Visit: Yes Annotation/Comment:: O2 dependent COPD with progressive hypoxia secondary to his pneumonia. O2 sats actually at baseline with current 4 L/min by nasal cannula. Likely continuation of patient's previous nebulizer treatments by accepting providers. Qualifiers: COPD type: COPD with acute lower respiratory infection Qualified Code(s): J44.0 - Chronic obstructive pulmonary disease with (acute) lower respiratory infection (6) Cachexia SNOMED Code(s): 650972198 Code(s): R64 - CACHEXIA Status: Chronic Priority: High Current Visit: Yes Annotation/Comment:: Cachexia of unknown etiology. Patient has refused work-up in the past. No previous history of distant colonic polyps, current O2 dependent COPD, etc. as above. (7) Complete left bundle branch block SNOMED Code(s): 7837269 Code(s): I44.7 - LEFT BUNDLE-BRANCH BLOCK, UNSPECIFIED Status: Acute Priority: High Current Visit: Yes Onset Date: 08/26/20 Annotation/Comment:: No recent EKG available for comparison. Unknown whether his left bundle branch block is new with moderate CHF at this time. Nonspecific lateral wall changes in the presence of atrial flutter with no apparent recent chest pain or other anginal complaints. Mild change in troponin I secondary to CHF, however this is still normal with otherwise normal cardiac enzymes. Chest pain protocol was not initiated in the emergency room. Note current Eliquis therapy. Consider cardiology consultation and/or initiation of standard rule out KS orders by accepting providers. (8) Mixed anxiety depressive disorder SNOMED Code(s): 984164843 Code(s): F41.8 - OTHER SPECIFIED ANXIETY DISORDERS Status: Chronic Priority: Medium Current Visit: Yes Annotation/Comment:: Flat affect. Continue to observe closely by accepting and regular providers. Note history of paranoid schizophrenia. (9) HTN (hypertension) SNOMED Code(s): 09145516 Code(s): I10 - ESSENTIAL (PRIMARY) HYPERTENSION Status: Chronic Priority: Medium Current Visit: Yes Annotation/Comment:: Despite possibility of sepsis blood pressure stable in the emergency room. Qualifiers: Hypertension type: essential hypertension Qualified Code(s): I10 - Essential (primary) hypertension (10) A-fib SNOMED Code(s): 67123460 Code(s): I48.91 - UNSPECIFIED ATRIAL FIBRILLATION Status: Chronic Priority: Medium Current Visit: Yes Annotation/Comment:: Long history of atrial fibrillation/flutter with current Eliquis therapy. Note previous distant CVA. Qualifiers: Atrial fibrillation type: longstanding persistent Qualified Code(s): I48.11 - Longstanding persistent atrial fibrillation (11) Diabetes SNOMED Code(s): 45484740 Code(s): E11.9 - TYPE 2 DIABETES MELLITUS WITHOUT COMPLICATIONS Status: Chronic Priority: Medium Current Visit: Yes Annotation/Comment:: Continue to observe closely by accepting providers in light of patient's possible sepsis. Qualifiers: Diabetes mellitus type: type 2 Diabetes mellitus complication status: without complication Qualified Code(s): E11.9 - Type 2 diabetes mellitus without complications (12) D-dimer, elevated SNOMED Code(s): 291910083 Code(s): R79.89 - OTHER SPECIFIED ABNORMAL FINDINGS OF BLOOD CHEMISTRY Status: Chronic Priority: High Current Visit: Yes Onset Date: 08/06/20 Annotation/Comment:: Note previous history of chronic D-dimer elevation since 08/06/2020 and patient refusing work-up at that time. - Problem List Review Problem List Initiated/Reviewed/Updated: Yes - My Orders Last 24 Hours: My Active Orders 08/26/20 Breakfast Nothing Per Oral Diet [DIET] 08/26/20 14:23 Cardiac Monitoring [RC] CONTINUOUS Communication Order [RC] ROUTINE EKG Documentation Completion [RC] ASDIRECTED Oxygen Therapy, ED [RC] CONTINUOUS Peripheral IV Care [RC] . DIRECTED Pulse Oximetry [RC] CONTINUOUS Up With Assistance [RC] ASDIRECTED Chest 1V Frontal [CR] Stat Sodium Chloride 0.9% [Saline Flush] 10 ml FLUSH ASDIRECTED PRN Blood Culture x2 Reflex Set [OM.PC] Stat Isolation [COMM] Routine Obtain Past Medical Record [OM.PC] Stat Peripheral IV Insertion Adult [OM.PC] Stat Resuscitation Status Routine 08/26/20 14:40 CULTURE BLOOD [BC] Stat 08/26/20 14:45 CULTURE BLOOD [BC] Stat - Assessment/Plan Last 24 Hours: My Active Orders 08/26/20 Breakfast Nothing Per Oral Diet [DIET] 08/26/20 14:23 Cardiac Monitoring [RC] CONTINUOUS Communication Order [RC] ROUTINE EKG Documentation Completion [RC] ASDIRECTED Oxygen Therapy, ED [RC] CONTINUOUS Peripheral IV Care [RC] . DIRECTED Pulse Oximetry [RC] CONTINUOUS Up With Assistance [RC] ASDIRECTED Chest 1V Frontal [CR] Stat Sodium Chloride 0.9% [Saline Flush] 10 ml FLUSH ASDIRECTED PRN Blood Culture x2 Reflex Set [OM.PC] Stat Isolation [COMM] Routine Obtain Past Medical Record [OM.PC] Stat Peripheral IV Insertion Adult [OM.PC] Stat Resuscitation Status Routine 08/26/20 14:40 CULTURE BLOOD [BC] Stat 08/26/20 14:45 CULTURE BLOOD [BC] Stat Assessment:: As above Plan: As above. Extensive precautions were given to the patient, who is in agreement with the treatment plan. Ambulance transfer to the [facility] in [place] as above.
[2020-08-26] MEDS ORDERED: cefTRIAXone 2 GM in Sodium Chloride 0.9% 100 ML IV ONE (15:26)
[2020-08-26 15:44] LABS: PTT,PARTIAL THROMBOPLSTIN TIME 29.1 SEC (24.5-32.8)
[2020-08-26] MEDS ORDERED: metroNIDAZOLE/Normal Saline 500 MG in Premix Bag 1 BAG IV ONE (15:50)
[2020-08-26] MEDS ORDERED: Lactated Ringers 1,000 ML IV ONE (16:12)
[2020-08-26 17:34] VITALS: BP 135/74; PULSE 95
== END 2020-08-26 17:30 ==
LOC: LL.ED 14:14
DX: J69.0 Pneumonitis due to inhalation of food and vomit (principal); J44.0 Chronic obstructive pulmonary disease with (acute) lower respiratory infection; I11.0 Hypertensive heart disease with heart failure; I50.9 Heart failure, unspecified; I48.11 Longstanding persistent atrial fibrillation; F20.9 Schizophrenia, unspecified; F41.8 Other specified anxiety disorders; I44.7 Left bundle-branch block, unspecified; R64 Cachexia; R74.01 Elevation of levels of liver transaminase levels; R79.1 Abnormal coagulation profile; E11.9 Type 2 diabetes mellitus without complications; N40.0 Benign prostatic hyperplasia without lower urinary tract symptoms; R33.8 Other retention of urine; I48.92 Unspecified atrial flutter; D64.9 Anemia, unspecified; Z72.0 Tobacco use; Z20.822 Contact with and (suspected) exposure to COVID-19; Z79.01 Long term (current) use of anticoagulants; Z79.899 Other long term (current) drug therapy
CPT/HCPCS: 36415; 71045; 82550; 82553; 83605; 83735; 83880; 84443; 84484; 85379; 85610; 85730; 87040; 87804; 93005; 96365; 96367; 99285-25; J0696; J3490; J7120; U0002